=== PATIENT | female | born 1975 | race Caucasian/White ===

== ENCOUNTER → 2021-10-29 | Day surgery (SDC) | payer MEDICARE ==
[~2021-10-29] VITALS: Ht 160 cm; Wt 106.1 kg
[~2021-10-29] MED LIST: BACTRIM DS TAB1 EACH PO; COUMADIN7.5 MG PO; HCTZ12.5 MG PO; HYDRALAZINE25 MG PO; HYDROXYZINE PAM25 MG PO; KEFLEX500 MG PO; PAROXETINE 20MG20 MG PO; SYMBICORT 16010.2 GM INH; TRAMADOL HCL50 MG PO; ZOVIRAX200 MG PO
[2021-10-29 10:11] LABS: HCG (URINE) SCREEN POSITIVE (NEGATIVE)
[2021-10-29 10:47] LABS: INR 1.54 (0.9-1.2); PTT 31.8 SECONDS (24.9-34.6)
[2021-10-29 10:53] LABS: BUN/CREAT RATIO (CALC) 24.1 RATIO; CREATININE 0.87 mg/dL (0.51-0.95); POTASSIUM 3.8 mmol/L (3.5-5.1)
== END | disposition home or self-care (01) ==
LOC: FAS 09:13
PROVIDERS: Anesthesiology
DX: L02.415 Cutaneous abscess of right lower limb (principal); F41.9 Anxiety disorder, unspecified; J44.9 Chronic obstructive pulmonary disease, unspecified; E78.5 Hyperlipidemia, unspecified; I10 Essential (primary) hypertension; Z88.1 Allergy status to other antibiotic agents; Z79.899 Other long term (current) drug therapy; Z20.822 Contact with and (suspected) exposure to COVID-19
CPT/HCPCS: 36415; 80048; 84702; 84703; 85610; 85730; 87070; 87075; 87205; 93005; J1885; J2250; J2405; J2704; J3010; J7120; U0002